=== PATIENT | female | born 1980 | race Caucasian/White ===

== ENCOUNTER 2017-06-19 09:45 | Emergency (ER) | payer OTHER ==
--- NOTE | 2017-06-19 12:57 | UC ---
Throat Pain/Nasal Fabrice HPI - HPI Summary HPI Summary: 36 y/o female presents to the urgent care c/o nasal congestion w/ clear discharge, productive cough, sore throat body aches, mild VINCENT for the past 2 days. Pt reports this morning w/ right side of abdomen with mild discomfort probably due from coughing last night. Pt has not taking anything to alleviate symptoms. Pain is 5/10 VINCENT. Pt denies fever, SOB, chest pain, N/V/D, urinary symptoms. Normal BM this morning. appetite is well and she is drinking plenty of fluids. - History of Current Complaint Stated Complaint: FEVER/SORE Time Seen by Provider: 06/19/17 12:51 Hx Obtained From: Patient Onset/Duration: Gradual Onset, Lasting Days - 2 days, Still Present, Worse Since - yesterday Severity: Moderate Pain Intensity: 5 - VINCENT Pain Scale Used: 0-10 Numeric Cough: Sputum Appears - clear and yellowish at times Associated Signs & Symptoms: Positive: Sinus Discomfort, Nasal Discharge. Negative: Fever, Vomiting, Rash - Epiglottits Risk Factors Epiglottis Risk Factors: Negative - Allergies/Home Medications Allergies/Adverse Reactions: Allergies Allergy/AdvReac Type Severity Reaction Status Date / Time MS Penicillins Allergy Unknown Verified 06/19/17 12:58 Reaction Details Home Medications: Home Medications Ms Acetaminophen 1,000 mg PO Q6HR PRN 06/19/17 [History Confirmed 06/19/17] Ms Vitamin C 1 tab PO SEE INSTRUCTIONS 06/19/17 [History Confirmed 06/19/17] PMH/Surg Hx/FS Hx/Imm Hx Previously Healthy: Yes Endocrine History: Hypothyroidism - Family History Known Family History: Positive: Diabetes Family History: Hypothyrodism - Social History Occupation: Employed Full-time, Student Lives: With Family Review of Systems Constitutional: Chills, Other - body aches Skin: Negative Eyes: Negative ENT: Sore Throat, Nasal Discharge, Sinus Congestion Respiratory: Cough Cardiovascular: Negative Gastrointestinal: Abdominal Pain - RT side when she coughs Genitourinary: Negative Motor: Negative Neurovascular: Negative Musculoskeletal: Negative Neurological: Headache Psychological: Negative Is Patient Immunocompromised?: No All Other Systems Reviewed And Are Negative: Yes Physical Exam Triage Information Reviewed: Yes - Additional Comments VITAL SIGNS: Reviewed. GENERAL: Patient is a well developed and nourished female who is sitting comfortable in the examining table. Patient is not in any acute respiratory distress. HEAD AND FACE: No signs of trauma. No ecchymosis, hematomas or skull depressions. No sinus tenderness. EYES: PERRLA, EOMI x 2, No injected conjunctiva, no nystagmus. No photophobia. EARS: Hearing grossly intact. Ear canals and tympanic membranes are within normal limits. MOUTH: Positive pharynx with erythema, exudates, palatal petechiae. B/L tonsillar enlargement with exudate. Uvula in midline. NECK: Supple, trachea is midline, Positive anterior cervical lymphadenopathy, no JVD, no carotid bruit, no c-spine tenderness, neck with full ROM. No meningeal signs, no Kernig's or brudzinskis signs. CHEST: Symmetric, no tenderness at palpation LUNGS: Clear to auscultation bilaterally. No wheezing or crackles. CVS: Regular rate and rhythm, S1 and S2 present, no murmurs or gallops appreciated. ABDOMEN: Soft, non-tender. No signs of distention. No rebound no guarding, and no masses palpated. No organomegaly. Negative Elizabeth signs. No periumbilical tenderness. No rebound in the lower quadrants. NT over McBurneys point. EXTREMITIES: FROM in all major joints, no edema, no cyanosis or clubbing. NEURO: Alert and oriented x 3. No acute neurological deficits. Speech is normal and follows commands. SKIN: Dry and warm Throat Pain/Nasal Course/Dx - Course Course Of Treatment: 36 y/o female presents to the urgent care c/o nasal congestion w/ clear discharge, productive cough, sore throat body aches, mild VINCENT for the past 2 days. Pt reports this morning w/ right side of abdomen with mild discomfort probably due from coughing last night. Pt has not taking anything to alleviate symptoms. Pain is 5/10 VINCENT. Pt denies fever, SOB, chest pain, N/V/D, urinary symptoms. Normal BM this morning. appetite is well and she is drinking plenty of fluids.Hx obtained. Pt with URI on examination. Most likely Influenza. However at this moment shortage of influenza test. Pt Rx Tamiflu and ibuprofen PO to alleviates symptoms. Advised on hand washing and wear a mask to avoid spreading. Pt advised to rest, increase fluid intake, eat well and avoid strenuous exercise. If symptoms do not improve or worsen advised to return to the urgent care or f/u with her PCP for further evaluation and treatment.Pt understood and agreed with plan of care. - Differential Dx/Diagnosis Differential Diagnosis/HQI/PQRI: Influenza, Laryngitis, Mononucleosis, Pharyngitis, Sinusitis, Tonsillitis, Other - appendicitis, cholecystitis Provider Diagnoses: 1-Influenza Discharge - Discharge Plan Condition: Stable Disposition: HOME Prescriptions: Oseltamivir CAP* [Tamiflu CAP*] 75 mg PO BID #10 cap Patient Education Materials: Influenza (ED) Forms: *School Release, *Work Release Referrals: [facility] [place] [facility] REFERRAL [Outside] - 3 Days Additional Instructions: 1- Please take the full course of the antiviral to avoid resistance. Encourage hand washing and wear a mask to avoid spreading. 2-Please continue taking Tylenol PO q6-8hrs prn as instructed after meals to alleviate fever, and sore throat. Increase fluid intake, eat well, rest and avoid strenuous exercise 3- TAke Delsym PO q4-6hrs OTC to alleviate cough 3-If symptoms do not improve or worsen please return to the urgent care or f/u with your PCP in 2-3 days for further evaluation and treatment.
[2017-06-19 13:10] VITALS: BP 116/78
== END 2017-06-19 13:49 | disposition home or self-care (01) ==
LOC: UCCORT 09:45
DX: J11.1 Influenza due to unidentified influenza virus with other respiratory manifestations (principal); E03.9 Hypothyroidism, unspecified
CPT/HCPCS: 99202; G0463

== ENCOUNTER 2019-06-04 11:15 | Emergency (ER) | payer OTHER ==
[2019-06-04 12:10] VITALS: BP 140/77
--- NOTE | 2019-06-04 13:11 | UC ---
Eye Complaint HPI - HPI Summary HPI Summary: 38-year-old female presents with complaints of a red, swollen, "lump" to her right upper eyelid for the past 3 months. States initially was tender to the touch but this resolved after a few days. States that at times she has thought that it was going to drain but has not noted any drainage. Occasionally has some crusting of the eyelid in the morning. Denies eye redness, drainage, photophobia, foreign body sensation, eye pain, or visual disturbances. - History of Current Complaint Chief Complaint: UCEye Stated Complaint: EYE ISSUE Time Seen by Provider: 06/04/19 12:30 Hx Obtained From: Patient Hx Last Menstrual Period: tubal ligation Pain Intensity: 0 - Allergies/Home Medications Allergies/Adverse Reactions: Allergies Allergy/AdvReac Type Severity Reaction Status Date / Time MS Penicillins Allergy Unknown Verified 06/19/17 12:58 Reaction Details Home Medications: Home Medications NK [No Home Medications Reported] 06/04/19 [History Confirmed 06/04/19] PMH/Surg Hx/FS Hx/Imm Hx Previously Healthy: Yes - Denies significant PMH - Surgical History Surgical History: Yes Surgery Procedure, Year, and Place: thyro-glossal cyst; tubal - Family History Known Family History: Positive: Diabetes Family History: Hypothyrodism - Social History Occupation: Employed Full-time Lives: With Family Alcohol Use: Occasionally Substance Use Type: None Smoking Status (MU): Heavy Every Day Tobacco Smoker Review of Systems All Other Systems Reviewed And Are Negative: Yes Constitutional: Negative: Fever, Chills Skin: Negative: Rash Eyes: Positive: Other - See HPI. Negative: Blurred Vision, Diplopia, Drainage, Eye Redness, Photophobia ENT: Positive: Negative Respiratory: Positive: Negative Cardiovascular: Positive: Negative Gastrointestinal: Positive: Negative Genitourinary: Positive: Negative Musculoskeletal: Positive: Negative Neurological: Positive: Negative Is Patient Immunocompromised?: No Physical Exam - Summary Physical Exam Summary: GENERAL APPEARANCE: Well developed, well nourished, alert and cooperative, and appears to be in no acute distress. EYES: Small, mildly erythematous, non-tender lesion to the right upper eyelid. Conjunctiva clear. No drainage or FB noted. PERRL, EOM intact. Vision is grossly intact. EARS: External auditory canals and tympanic membranes clear, hearing grossly intact. NOSE: No nasal discharge. THROAT: Pharynx normal. No tonsilar inflammation, swelling, exudate, or lesions. Uvula midline. Oral cavity normal. Teeth and gingiva in good general condition. NECK: Neck supple, non-tender without lymphadenopathy. CARDIAC: Normal S1 and S2. No S3, S4 or murmurs. Rhythm is regular. There is no peripheral edema, cyanosis or pallor. Extremities are warm and well perfused. Capillary refill is less than 2 seconds. Peripheral pulses intact. LUNGS: Clear to auscultation without rales, rhonchi, wheezing or diminished breath sounds. ABDOMEN: Positive bowel sounds. Soft, nondistended, nontender. No guarding or rebound. No masses or hepatosplenomegally. MUSKULOSKELETAL: ROM intact to all extremities. No joint erythema or tenderness. Normal muscular development. Normal gait. SKIN: Skin normal color, texture and turgor with no lesions or eruptions. Triage Information Reviewed: Yes Vital Signs: Initial Vital Signs Temp 97.9 F 06/04/19 12:04 Pulse 75 06/04/19 12:04 Resp 18 06/04/19 12:04 BP 140/77 06/04/19 12:04 Pulse Ox 97 06/04/19 12:04 Vital Signs Reviewed: Yes Eye Complaint Course/Dx - Course Course Of Treatment: 38-year-old female presents with complaints of a red, swollen, "lump" to her right upper eyelid for the past 3 months. States initially was tender to the touch but this resolved after a few days. States that at times she has thought that it was going to drain but has not noted any drainage. Occasionally has some crusting of the eyelid in the morning. Denies eye redness, drainage, photophobia, foreign body sensation, eye pain, or visual disturbances. Afebrile. VSS. Patient has a small, mildly erythematous, non-tender lesion to the right upper eyelid consistent with a chalazion. Conjunctiva clear, no drainage or FB noted, PERRL, EOM intact, and vision is grossly intact. Discussed with patient that her symptoms were consistent with a chalazion with no evidence of an infectious process at this time. Recommending use of hot packs and OTC analgesics with follow up with ophthalmology within 1 week for further evaluation and treatment. Anticpatory guidance and warning symptoms were reviewed with the patient. Verbalizes understanding and agrees with POC. - Differential Dx/Diagnosis Differential Diagnosis/HQI/PQRI: Conjunctivitis, Corneal Abrasion, Foreign Body , Periorbital Cellulitis, Orbital Cellulitis, Other - Hordeolum, chalazion Provider Diagnosis: Chalazion of right upper eyelid Discharge ED - Sign-Out/Discharge Documenting (check all that apply): Patient Departure All imaging exams completed and their final reports reviewed: No Studies - Discharge Plan Condition: Stable Disposition: HOME Patient Education Materials: Chalazion (ED) Referrals: Non Staff,Doctor [Primary Care Provider] - Paras Collier MD [Medical Doctor] - 7 Days (Follow up within 1 week for further evaluation and treatment. Call for appointment.) Additional Instructions: Your symptoms are consistent with a condition called a chalazion of the upper eyelid which is caused by a chronic blockage of the oil gland. This does not appear to be an infectious process and I would not recommend starting antibiotic eyedrops at this time. You may apply warm moist compresses to the eye for 15 minutes at least 3-4 times a day as this may help promote drainage of the blockage. Take [id number] acetaminophen (Tylenol) or ibuprofen (Advil, Motrin) according directions as needed for any discomfort. Follow-up with ophthalmology within 1 week for further evaluation and treatment. Call for an appointment. Seek immediate medical attention if you develop any severe pain within the eye, have any changes in vision, loss of vision, increased swelling of the eyelid, or any worsening of symptoms. - Billing Disposition and Condition Condition: STABLE Disposition: Home
== END 2019-06-04 13:46 | disposition home or self-care (01) ==
LOC: UCEAST 11:15
DX: H00.11 Chalazion right upper eyelid (principal); F17.290 Nicotine dependence, other tobacco product, uncomplicated; Z88.0 Allergy status to penicillin
CPT/HCPCS: 99211; G0463